=== PATIENT | female | born 1995 | race Two or more races ===

== ENCOUNTER 2020-12-28 21:01 | Emergency (ER) | payer OTHER ==
[~2020-12-28] VITALS: Ht 162.6 cm; Wt 99.6 kg
[2020-12-28 21:04] VITALS: BP 144/95
--- NOTE | 2020-12-28 21:04 | NUR ---
HEEL SCOURER. BORIS ANDREWS TRIAGED PT AND COMPLETED EKG FOR DIZZINESS. PT DENIED SOB PER BORIS ANDREWS. L&D CALLED PER PROTOCOL FOR WEEKS , SPOKE TO SKIN CARE CONSULTANT SUZZY ABOUT PT REPORTED 33 WEEKS AND SYMPTOMS. KD STATES PT MAY COME TO L&D FOR C/O OF DIZZINESS. SKIN CARE CONSULTANTDARRYL MARLOW
== END 2020-12-28 21:34 | disposition home or self-care (01) ==
LOC: ED 21:30
DX: O26.893 Other specified pregnancy related conditions, third trimester (principal); R11.0 Nausea; R19.7 Diarrhea, unspecified; R06.02 Shortness of breath; R42 Dizziness and giddiness; Z3A.33 33 weeks gestation of pregnancy
CPT/HCPCS: 93005; 99283

== ENCOUNTER 2020-12-28 21:26 | Outpatient (CLI) | payer OTHER ==
[~2020-12-28] VITALS: Ht 162.6 cm; Wt 98.0 kg
[2020-12-28 22:10] LABS: MICROSCOPIC NOT IND
== END 2020-12-28 23:35 | disposition home or self-care (01) ==
LOC: LDOP 21:26
PROVIDERS: ATTEND Obstetrics & Gynecology
DX: O26.893 Other specified pregnancy related conditions, third trimester (principal); R42 Dizziness and giddiness; Z3A.32 32 weeks gestation of pregnancy
CPT/HCPCS: 59025; 81003

== ENCOUNTER 2021-02-18 11:32 | Inpatient (IN) | payer OTHER ==
[~2021-02-18] VITALS: Ht 162.6 cm; Wt 105.0 kg
[2021-02-18 12:05] VITALS: BP 136/96
[2021-02-18 12:22] LABS: BASOPHILS % (AUTO) 0 % (0-1); EOSINOPHILS % (AUTO) 0 % (1-7); LYMPHOCYTES % (AUTO) 15 % (22-44); MEAN CORPUSCULAR HEMOGLOBIN 28.3 pg (27.0-34.8); MEAN CORPUSCULAR HGB CONC 33.9 g/dL (32.4-35.8); MEAN PLATELET VOLUME 9.5 fL (7.4-10.4); MONOCYTES % (AUTO) 4 % (2-9); NEUTROPHILS % (AUTO) 80 % (42-75); PLATELET COUNT 168 x10^3/uL (130-400); RED BLOOD COUNT 4.93 x10^6/uL (3.82-5.3); RED CELL DISTRIBUTION WIDTH 14.1 % (9.6-15.2)
[2021-02-18] MEDS ORDERED: PREN1TAB60 PO (12:23)
[2021-02-18 12:32] LABS: ALANINE AMINOTRANSFERASE 13 U/L (12-78); ALBUMIN 2.5 g/dL (3.4-5.0); ANION GAP 10 mmol/L (5-15); CALCIUM 8.6 mg/dL (8.5-10.1); CHLORIDE 111 mmol/L (98-107)
[2021-02-18 12:35] LABS: MICROSCOPIC INDICATED
[2021-02-18 12:37] LABS: ALKALINE PHOSPHATASE 132 U/L (45-117); BILIRUBIN,TOTAL 0.3 mg/dL (0.2-1.0); TOTAL PROTEIN 6.3 g/dL (6.4-8.2)
[2021-02-18 12:38] LABS: BILIRUBIN, DIRECT < 0.1 mg/dL (0.1-0.2)
[2021-02-18 12:43] LABS: CREATININE,URINE RANDOM 54.7 mg/dL
[2021-02-18] MEDS ORDERED: TERBUTALINE 1 MG/ML, 1ML IVPush PRN (13:30)
[2021-02-18] MEDS ORDERED: OXYTOCIN 30U/ 0.9% NaCL 500ML 500 ML IV ONE (13:30)
[2021-02-18] MEDS ORDERED: MISOPROSTOL 25 MCG TABLET VG PRN (13:30)
[2021-02-18] MEDS ORDERED: TERBUTALINE 1 MG/ML, 1ML SQ PRN (13:30)
[2021-02-18] MEDS ORDERED: D5%-LACTATED RINGERS 1,000 ML IV SCH (13:30)
[2021-02-18] MEDS: LACTATED RINGERS 1,000 ML IV SCH ×2 (13:50→21:30)
[2021-02-18] MEDS: FENTANYL PF 100 MCG/2ML IVPush PRN ×3 (17:29→20:45)
[2021-02-18] MEDS ORDERED: NEWBORN KIT ONE (17:53)
[2021-02-18] MEDS ORDERED: LIDOCAINE 1%, 20ML ONE (17:54)
[2021-02-18] MEDS ORDERED: MISOPROSTOL 200 MCG TABLET ONE (17:54)
[2021-02-18] MEDS ORDERED: OXYTOCIN 30U/ 0.9% NaCL 500ML 500 ML ONE (17:55)
[2021-02-18] MEDS ORDERED: BUPIVACAINE 0.25% ONE (22:23)
[2021-02-18] MEDS ORDERED: FENTANYL/BUPIV./NS/PF 250 ML EPIDCONT ONE (22:23)
[2021-02-18] MEDS ORDERED: FENTANYL/BUPIV./NS/PF 250 ML EPIDCONT SCH (23:00)
[2021-02-18] MEDS ORDERED: LACTATED RINGERS 1,000 ML IVBOLUS PRN (23:00)
[2021-02-18] MEDS ORDERED: LACTATED RINGERS 1,000 ML IV SCH (23:00)
[2021-02-18] MEDS ORDERED: EPHEDRINE 50 MG/ML, 1ML IVPush PRN (23:00)
[2021-02-19] MEDS: ONDANSETRON 2MG/ML, 2ML IVPush PRN ×2 (00:15→12:30)
[2021-02-19] MEDS: LACTATED RINGERS 1,000 ML IV SCH ×2 (07:14→14:30)
[2021-02-19 07:21] VITALS: BP 132/86
[2021-02-19] MEDS ORDERED: LABETALOL 5MG/ML, 20ML ONE (13:51)
[2021-02-19] MEDS ORDERED: LABETALOL 20 MG/4 ML IVPush ONE (14:00)
[2021-02-19] MEDS ORDERED: hydrALAzine 20 MG/ML, 1ML IVPush ONE (14:00)
[2021-02-19] MEDS ORDERED: LABETALOL 5MG/ML, 20ML IVPush ONE ×2 (14:00)
[2021-02-19 16:58] LABS: ALANINE AMINOTRANSFERASE 12 U/L (12-78); ALBUMIN 2.5 g/dL (3.4-5.0); ANION GAP 10 mmol/L (5-15); CALCIUM 8.6 mg/dL (8.5-10.1); CHLORIDE 107 mmol/L (98-107); CREATININE 0.97 mg/dL (0.55-1.02)
[2021-02-19 17:01] LABS: ALKALINE PHOSPHATASE 138 U/L (45-117); BILIRUBIN,TOTAL 0.5 mg/dL (0.2-1.0); TOTAL PROTEIN 6.1 g/dL (6.4-8.2)
[2021-02-19] MEDS ORDERED: SODIUM CITRATE/CITRIC ACID 15 ML UDC ONE (21:52)
[2021-02-19] MEDS ORDERED: METOCLOPRAMIDE 5 MG/ML, 2ML ONE (21:53)
[2021-02-19] MEDS ORDERED: ONDANSETRON 2MG/ML, 2ML ONE (23:36)
[2021-02-19] MEDS ORDERED: FENTANYL PF 100 MCG/2ML ONE (23:36)
[2021-02-19] MEDS ORDERED: PROPOFOL 10 MG/ML, 20ML ONE (23:36)
[2021-02-19] MEDS ORDERED: CEFAZOLIN 1,000 MG ONE (23:36)
[2021-02-19] MEDS ORDERED: DEXAMETHASONE 4 MG/ML, 1ML ONE (23:36)
[2021-02-19] MEDS ORDERED: KETOROLAC 30 MG/1 ML ONE (23:36)
[2021-02-19] MEDS ORDERED: OXYTOCIN 10 UNITS/ML, 1ML ONE (23:36)
[2021-02-19] MEDS ORDERED: PHENYLEPHRINE 10 MG/ML ONE (23:36)
[2021-02-19] MEDS ORDERED: SUCCINYLCHOLINE 20 MG/ML, 10ML ONE (23:36)
[2021-02-19] MEDS ORDERED: EPHEDRINE 50 MG/ML, 1ML ONE (23:36)
[2021-02-20] MEDS ORDERED: METOPROLOL 1 MG/ML, 5ML IV PRN
[2021-02-20] MEDS ORDERED: MEPERIDINE/PF 25MG/0.5ML IVPush PRN
[2021-02-20] MEDS ORDERED: LABETALOL 5MG/ML, 20ML IV PRN
[2021-02-20] MEDS ORDERED: MIDAZOLAM 1 MG/ML, 2ML IV PRN
[2021-02-20] MEDS ORDERED: OXYcodone 5 MG/5 ML ORAL.SOL UDC PO PRN
[2021-02-20] MEDS ORDERED: EPHEDRINE 50 MG/ML, 1ML IVPush PRN
[2021-02-20] MEDS ORDERED: PROMETHAZINE 25 MG/ML, 1ML IV PRN
[2021-02-20] MEDS ORDERED: HYDROmorphone 2 MG/ML, 1ML IVPush PRN
[2021-02-20] MEDS ORDERED: ALBUTEROL SULFATE 2.5 MG/3 ML NPPB PRN
[2021-02-20] MEDS ORDERED: hydrALAzine 20 MG/ML, 1ML IV PRN
[2021-02-20] MEDS ORDERED: ONDANSETRON 2MG/ML, 2ML IVPush PRN
[2021-02-20] MEDS ORDERED: HYDROcodone/APAP 7.5-325MG/15ML UDC PO PRN
[2021-02-20] MEDS ORDERED: morphine SULFATE/PF 0.5 MG/ML, 10ML ONE (00:13)
[2021-02-20] MEDS ORDERED: FENTANYL PF 100 MCG/2ML ONE (00:13)
[2021-02-20] MEDS: FENTANYL PF 100 MCG/2ML IV PRN ×2 (00:51→02:18)
[2021-02-20] MEDS ORDERED: TRANEXAMIC ACID 1,000 MG in SODIUM CHLORIDE 0.9% 100 ML IVPB ONE (01:00)
[2021-02-20] MEDS ORDERED: CARBOPROST TROMETHAMINE 250 MCG/ML, 1ML IM PRN (01:00)
[2021-02-20] MEDS ORDERED: SIMETHICONE 80 MG CHEW TAB PO PRN (01:00)
[2021-02-20] MEDS ORDERED: MORPHINE SULFATE 4 MG/ML, 1ML IVPush PRN (01:00)
[2021-02-20] MEDS ORDERED: ONDANSETRON 2MG/ML, 2ML IV PRN (01:00)
[2021-02-20] MEDS: OXYTOCIN 30U/ 0.9% NaCL 500ML 500 ML IV SCH ×2 (01:00→11:00)
[2021-02-20] MEDS ORDERED: morphine SULFATE 10 MG/ML, 1ML IM PRN (01:00)
[2021-02-20] MEDS: LACTATED RINGERS 1,000 ML IV SCH ×4 (01:00→11:00)
[2021-02-20] MEDS ORDERED: MISOPROSTOL 200 MCG TABLET PR PRN (01:00)
[2021-02-20 03:10] VITALS: BP 141/104
[2021-02-20 03:42] LABS: MEAN CORPUSCULAR HEMOGLOBIN 28.1 pg (27.0-34.8); MEAN CORPUSCULAR HGB CONC 33.5 g/dL (32.4-35.8); MEAN PLATELET VOLUME 9.9 fL (7.4-10.4); PLATELET COUNT 149 x10^3/uL (130-400); RED BLOOD COUNT 4.81 x10^6/uL (3.82-5.3); RED CELL DISTRIBUTION WIDTH 14.4 % (9.6-15.2)
[2021-02-20 03:49] LABS: ANION GAP 10 mmol/L (5-15); CALCIUM 8.1 mg/dL (8.5-10.1); CHLORIDE 109 mmol/L (98-107)
[2021-02-20 03:52] LABS: ALANINE AMINOTRANSFERASE 11 U/L (12-78); ALKALINE PHOSPHATASE 124 U/L (45-117); BILIRUBIN,TOTAL 0.5 mg/dL (0.2-1.0); CREATININE 1.14 mg/dL (0.55-1.02); TOTAL PROTEIN 5.5 g/dL (6.4-8.2)
[2021-02-20 04:18] LABS: BANDS%(MANUAL) 7 % (0-7); LYMPH#(MANUAL) 1.63 x10^3/uL (1-3.4); LYMPHS% (MANUAL) 6 % (22-44); MONOS#(MANUAL) 0.54 x10^3/uL (0.3-2.7); MONOS% (MANUAL) 2 % (2-9); SEG#(MANUAL) 23.12 x10^3/uL (1.8-6.8); SEGS% (MANUAL) 85 % (42-75)
[2021-02-20 04:19] LABS: <PLATELET ESTIMATE> ADEQUATE; <RBC MORPHOLOGY> NORMAL; LARGE PLATELETS 1+
[2021-02-20] MEDS: OXYcodone IR 5MG TABLET PO PRN ×4 (05:03→21:43)
[2021-02-20 08:23] LABS: MEAN CORPUSCULAR HEMOGLOBIN 28.2 pg (27.0-34.8); MEAN CORPUSCULAR HGB CONC 33.5 g/dL (32.4-35.8); MEAN PLATELET VOLUME 9.5 fL (7.4-10.4); PLATELET COUNT 150 x10^3/uL (130-400); RED BLOOD COUNT 4.64 x10^6/uL (3.82-5.3); RED CELL DISTRIBUTION WIDTH 14.4 % (9.6-15.2)
[2021-02-20 08:30] VITALS: BP 135/87
[2021-02-20 08:55] LABS: BAND#(MANUAL) 2.02 x10^3/uL; BANDS%(MANUAL) 7 % (0-7); LYMPH#(MANUAL) 0.87 x10^3/uL (1-3.4); LYMPHS% (MANUAL) 3 % (22-44); MONOS#(MANUAL) 0.87 x10^3/uL (0.3-2.7); MONOS% (MANUAL) 3 % (2-9); SEG#(MANUAL) 25.14 x10^3/uL (1.8-6.8); SEGS% (MANUAL) 87 % (42-75)
[2021-02-20 08:56] LABS: <PLATELET ESTIMATE> ADEQUATE; <PLT MORPHOLOGY> NORMAL PLT MORPH; <RBC MORPHOLOGY> NORMAL
[2021-02-20] MEDS: DOCUSATE 100 MG CAPSULE PO PRN ×2 (09:58→21:42)
[2021-02-20] MEDS: PRENATAL VIT/IRON/FA 1 EACH TABLET PO SCH (09:58)
[2021-02-20] MEDS: KETOROLAC 30 MG/1 ML IV SCH ×2 (09:58→16:08)
[2021-02-20] MEDS: MEPERIDINE/PF 50 MG/ML IM PRN ×2 (10:22→14:05)
[2021-02-20] MEDS ORDERED: HYDROmorphone 1 MG/ML, 1ML INJ IV ONE (11:30)
[2021-02-20 12:00] VITALS: BP 135/87
[2021-02-20 16:17] VITALS: BP 135/86
[2021-02-20 20:10] VITALS: BP 132/85
[2021-02-20] MEDS: KETOROLAC 30 MG/1 ML IVPush SCH (22:29)
[2021-02-21 00:22] VITALS: BP 132/88
[2021-02-21] MEDS: KETOROLAC 30 MG/1 ML IVPush SCH ×6 (02:58→22:00)
[2021-02-21] MEDS: OXYcodone IR 5MG TABLET PO PRN ×5 (03:00→20:29)
[2021-02-21 04:13] VITALS: BP 128/84
[2021-02-21 07:39] VITALS: BP 136/82
[2021-02-21] MEDS: PRENATAL VIT/IRON/FA 1 EACH TABLET PO SCH (09:25)
[2021-02-21] MEDS: DOCUSATE 100 MG CAPSULE PO PRN ×2 (09:25→20:29)
[2021-02-21 09:49] LABS: ALANINE AMINOTRANSFERASE 12 U/L (12-78); ANION GAP 9 mmol/L (5-15); CALCIUM 8.4 mg/dL (8.5-10.1); CHLORIDE 110 mmol/L (98-107); CREATININE 0.66 mg/dL (0.55-1.02)
[2021-02-21 09:52] LABS: ALKALINE PHOSPHATASE 110 U/L (45-117); BILIRUBIN,TOTAL 0.2 mg/dL (0.2-1.0); TOTAL PROTEIN 5.3 g/dL (6.4-8.2)
[2021-02-21] MEDS: IBUPROFEN 600 MG TABLET PO PRN ×2 (10:47→17:37)
[2021-02-21 21:45] VITALS: BP 137/89
[2021-02-22] MEDS: IBUPROFEN 600 MG TABLET PO PRN ×2 (00:43→08:13)
[2021-02-22] MEDS: OXYcodone IR 5MG TABLET PO PRN (00:44)
[2021-02-22] MEDS: KETOROLAC 30 MG/1 ML IVPush SCH (04:00)
[2021-02-22 07:24] VITALS: BP 136/91
[2021-02-22] MEDS: DOCUSATE 100 MG CAPSULE PO PRN (08:13)
[2021-02-22] MEDS: PRENATAL VIT/IRON/FA 1 EACH TABLET PO SCH (08:13)
[2021-02-22] MEDS ORDERED: IBUP-1222 PO (11:58)
[2021-02-22] MEDS ORDERED: OXYC1TAB14 PO (11:58)
== END 2021-02-22 13:45 | disposition home or self-care (01) | DRG 788 ==
LOC: LDOP 11:32 → LDIP 13:27 → 2NW 02-20 02:50
PROVIDERS: ADMIT Obstetrics & Gynecology; ATTEND Obstetrics & Gynecology
PROC: 10H07YZ Insertion of Other Device into Products of Conception, Via Natural or Artificial Opening (ICD-10-PCS; 2021-02-19)
PROC: 10D00Z1 Extraction of Products of Conception, Low, Open Approach (ICD-10-PCS; principal; 2021-02-20)
DX: O13.4 Gestational [pregnancy-induced] hypertension without significant proteinuria, complicating childbirth (principal); O48.0 Post-term pregnancy; Z37.0 Single live birth; Z3A.40 40 weeks gestation of pregnancy; O99.214 Obesity complicating childbirth; Z80.7 Family history of other malignant neoplasms of lymphoid, hematopoietic and related tissues; Z20.822 Contact with and (suspected) exposure to COVID-19; O62.0 Primary inadequate contractions; Z83.3 Family history of diabetes mellitus; Z82.5 Family history of asthma and other chronic lower respiratory diseases; Z82.49 Family history of ischemic heart disease and other diseases of the circulatory system; Z59.7 Insufficient social insurance and welfare support; Z68.39 Body mass index [BMI] 39.0-39.9, adult
CPT/HCPCS: 36415; J7121; 80053; 81001; 82248; 82570; 84156; 84550; 85025; 86592; 86850; 86900; 87635; G0378; J0690; J1100; J1170; J1885; J2175; J2274; J2405; J2704; J3010; J0330; J2370; J2590; J7120